=== PATIENT | female | born 1975 | race Caucasian/White ===

== ENCOUNTER 2023-03-16 13:40 | Emergency (ER) | payer MEDICAID ==
[~2023-03-16] VITALS: Ht 162.6 cm; Wt 123.8 kg
[2023-03-16 14:01] VITALS: BP 139/85; PULSE 92; RESP 20; TEMP 98.2
[2023-03-16] MEDS ORDERED: DOCU-299 PO (14:38)
[2023-03-16 14:42] VITALS: BP 135/89; PULSE 85; RESP 18; TEMP 98.2
== END 2023-03-16 14:45 | disposition home or self-care (01) ==
LOC: MED 13:40
DX: K92.1 Melena (principal); Z79.899 Other long term (current) drug therapy
CPT/HCPCS: 99282